=== PATIENT | male | born 1995 | race African-American/Black ===

== ENCOUNTER 2018-12-18 21:51 | Observation (INO) | payer BC, OTHER, SELFPAY ==
[~2018-12-18] VITALS: Ht 175.3 cm; Wt 61.5 kg
[2018-12-18 22:06] LABS: VENOUS BASE EXCESS 2.4 (-2.0-2.0); VENOUS HCO3 25.7 MEQ/L (23.0-27.0); VENOUS O2 SATURATION 75.3 % (60.0-80.0); VENOUS PARTIAL PRESSURE CO2 35.5 mmHg (38.0-50.0); VENOUS PARTIAL PRESSURE O2 38.7 mmHg (30.0-50.0); VENOUS PH 7.477 UNITS (7.330-7.430); VENOUS STANDARD HCO3 26.1 MEQ/L; VENOUS TOTAL CO2 26.8 MEQ/L (24.0-28.0)
[2018-12-18 22:07] LABS: BASO % 0.3 % (0.0-1.0); EOS # 0.1 10^3/uL (0.0-0.50); EOS % 0.6 % (0.0-3.0); HEMATOCRIT 35.9 % (42.0-52.0); HEMOGLOBIN 13.1 g/dl (13.5-17.5); LYMPH # 1.9 10^3/uL (1.5-6.5); LYMPH % 12.6 % (24.0-44.0); MEAN CORPUSCULAR HEMOGLOBIN 30.2 pg (27.0-33.0); MEAN CORPUSCULAR HGB CONC 36.5 g/dl (32.0-36.5); MEAN CORPUSCULAR VOLUME 82.7 fl (80.0-96.0); MONO # 0.8 10^3/uL (0.0-0.8); MONO % 5.3 % (0.0-5.0); NEUTROPHILS # 12.3 10^3/uL (1.8-7.7); NEUTROPHILS % 80.7 % (36.0-66.0); PLATELET COUNT, AUTOMATED 269 10^3/uL (150-450); RED BLOOD COUNT 4.34 10^6/uL (4.30-6.10); WHITE BLOOD COUNT 15.2 10^3/uL (4.0-10.0)
[2018-12-18 22:26] LABS: OSMOLALITY SERUM 292 MOSM/KG (275-295)
--- NOTE | 2018-12-18 22:47 | REPVR ---
EXAM: CT Head Without Contrast EXAM DATE/TIME: 12/18/2018 10:10 PM CLINICAL HISTORY: 23 years old, male; Signs and symptoms; Altered mental status/memory loss TECHNIQUE: Imaging protocol: Axial computed tomography images of the head/brain without contrast. Radiation optimization: All CT scans at this facility use at least one of these dose optimization techniques: automated exposure control; mA and/or kV adjustment per patient size (includes targeted exams where dose is matched to clinical indication); or iterative reconstruction. COMPARISON: No relevant prior studies available. FINDINGS: Brain: Normal. No hemorrhage. No significant white matter disease. No edema. Ventricles: Normal. No ventriculomegaly. Bones/joints: Unremarkable. No acute fracture. Sinuses: Visualized sinuses are unremarkable. No acute sinusitis. Mastoid air cells: Visualized mastoid air cells are unremarkable. No mastoid effusion. Soft tissues: Unremarkable. IMPRESSION: No acute intracranial abnormality. Electronically signed by: Raphael Solorzano On 12/18/2018 22:47:34 PM
[2018-12-18 22:56] LABS: ACETAMINOPHEN LEVEL < 2.0 UG/ML (10.0-30.0); ALBUMIN 4.3 GM/DL (3.2-5.2); ALT/SGPT 16 U/L (12-78); BILIRUBIN,DIRECT 0.2 MG/DL (0.0-0.2); BILIRUBIN,TOTAL 0.8 MG/DL (0.2-1.0); BLOOD UREA NITROGEN 17 MG/DL (7-18); C REACTIVE PROTEIN QUANTITATIV < 0.30 MG/DL (0.00-0.30); CALCIUM LEVEL 8.7 MG/DL (8.5-10.1); CARBON DIOXIDE LEVEL 25 MEQ/L (21-32); CHLORIDE LEVEL 104 MEQ/L (98-107); CPK CREATINE PHOSPHOKINASE 688 U/L (39-308); CREATININE FOR GFR 1.27 MG/DL (0.70-1.30); GLOMERULAR FILTRATION RATE > 60.0 (>60); GLUCOSE, FASTING 95 MG/DL (70-100); MB/CK RELATIVE INDEX 0.29 (< OR =4); POTASSIUM SERUM 3.4 MEQ/L (3.5-5.1); SALICYLATE LEVEL < 1.7 MG/DL (5.0-30.0); SODIUM LEVEL 139 MEQ/L (136-145); TOTAL PROTEIN 7.1 GM/DL (6.4-8.2); TROPONIN I < 0.02 NG/ML (< 0.10)
[2018-12-18] MEDS ORDERED: NS 1,000 ML IV ONE (23:00)
[2018-12-18 23:44] LABS: AMPHETAMINES LEVEL URINE NEGATIVE (NEGATIVE); BARBITURATES URINE NEGATIVE (NEGATIVE); BENZODIAZEPINES URINE NEGATIVE (NEGATIVE); CANNABINOIDS URINE NEGATIVE (NEGATIVE); COCAINE METABOLITE URINE NEGATIVE (NEGATIVE); METHADONE URINE NEGATIVE (NEGATIVE); OPIATES URINE NEGATIVE (NEGATIVE); PHENCYCLIDINE URINE NEGATIVE (NEGATIVE)
[2018-12-19] MEDS ORDERED: KETOROLAC 30 MG/ML VIAL (J1885) IV ONE
[2018-12-19] MEDS ORDERED: ACETAMINOPHEN TAB 650MG DOSE (2X325MG) PO PRN (00:30)
[2018-12-19] MEDS ORDERED: ONDANSETRON 4MG/2ML VIAL (J2405) IV PRN (00:30)
[2018-12-19] MEDS ORDERED: POTASSIUM CHLORIDE 10 MEQ SR TABLET PO ONE (01:00)
--- NOTE | 2018-12-19 02:32 | HPEPDOC ---
General Date of Admission Dec 19, 2018 at 00:16 Chief Complaint The patient is a 23-year-old male admitted with a reason for visit of Episode Of Syncope. History of Present Illness 23-year-old male Yeny [place] [employer] with no significant past medical history was brought to the ER after he had an episode of syncope/unresponsiveness. 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 He notes that his gear was all wet and that he felt nauseous, clammy, and faint. The patient then apparently was pulled from the training exercise and attended to by the medical staff. He was put in a helicopter and taken to [facility]. En route, according to reports the patient was noted to stop breathing and personnel apparently began CPR for about 3 minutes. The patient subsequently woke up and was noted to be nodding appropriately. The patient denies any similar episodes of the same, he denies any family history of sudden , or early onset coronary artery disease. He states that at baseline he is relatively active and is not limited physically at all. He does not recollect all of the aforementioned events clearly. At this time, the patient denies any prodromal symptoms, he also denies any fevers, chills, chest pain, palpitations, abdominal pain, jerking activity of the limbs, urinary/bowel incontinence, or any vomiting/diarrhea. Home Medications No Active Prescriptions or Reported Meds Allergies Coded Allergies: No Known Allergies (Unverified , 12/18/18) Past Medical History Medical History None Social History * Smoker: Denies Alcohol: occationally Drugs: denies Review of Systems Other systems 10 point review of systems negative unless otherwise specified in HPI. Physical Examination General Exam: Positive: Alert, Cooperative, No Acute Distress ENT Exam: Positive: Atraumatic, Mucous membr. moist/pink Neck Exam: Negative: JVD Chest Exam: Positive: Clear to auscultation, Normal air movement Heart Exam: Positive: Rate Normal, Regular Rhythm, Normal S1, Normal S2; Negative: Gallops, Murmurs, Rubs Telemetry: Positive: Sinus Abdomen Exam: Positive: Soft; Negative: Tenderness Extremity Exam: Negative: Tenderness, Swelling Psych Exam: Positive: Oriented x 3 Vital Signs Vital Signs Date Time Temp Pulse Resp B/P (MAP) Pulse Ox O2 Delivery O2 Flow Rate FiO2 12/19/18 02:10 79 17 97 Room Air 12/19/18 00:00 137/67 (90) 12/18/18 22:40 97.4 Laboratory Data Labs 24H Laboratory Tests 2 12/18/18 21:57: Immature Granulocyte % (Auto) 0.5, White Blood Count 15.2H, Red Blood Count 4.34, Hemoglobin 13.1L, Hematocrit 35.9L, Mean Corpuscular Volume 82.7, Mean Corpuscular Hemoglobin 30.2, Mean Corpuscular Hemoglobin Concent 36.5, Red Cell Distribution Width 12.8, Platelet Count 269, Neutrophils (%) (Auto) 80.7H, Lymphocytes (%) (Auto) 12.6L, Monocytes (%) (Auto) 5.3H, Eosinophils (%) (Auto) 0.6, Basophils (%) (Auto) 0.3, Neutrophils # (Auto) 12.3H, Lymphocytes # (Auto) 1.9, Monocytes # (Auto) 0.8, Eosinophils # (Auto) 0.1, Basophils # (Auto) 0.0, Nucleated Red Blood Cells % (auto) 0.0, Blood Gas Bicarbonate Standard 26.1, Venous Blood pH 7.477H, Venous Blood Partial Pressure CO2 35.5L, Venous Blood Partial Pressure O2 38.7, Venous Blood Total Carbon Dioxide 26.8, Venous Blood HCO3 25.7, Venous Blood Oxygen Saturation 75.3, Venous Blood Base Excess 2.4H, Anion Gap 10, Glomerular Filtration Rate > 60.0, Osmolality 292, Lactic Acid Level 2.5*H, Calcium Level 8.7, Aspartate Amino Transf (AST/SGOT) 20, Alanine Aminotransferase (ALT/SGPT) 16, Alkaline Phosphatase 44L, Total Bilirubin 0.8, Direct Bilirubin 0.2, Total Creatine Kinase 688H, Creatine Kinase MB 2.0, Creatine Kinase MB Relative Index 0.29, Troponin I < 0.02, C-Reactive Protein, Quantitative < 0.30, Total Protein 7.1, Albumin 4.3, Albumin/Globulin Ratio 1.54, Thyroid Stimulating Hormone (TSH) 0.990, Salicylates Level < 1.7L, Acetaminophen Level < 2.0L, Ethyl Alcohol Level 12/18/18 22:42: Bedside Glucose (Misc Panel) 97 12/18/18 23:19: Urine Amphetamines Screen NEGATIVE, Urine Benzodiazepines Screen NEGATIVE, Urine Opiates Screen NEGATIVE, Urine Methadone Screen NEGATIVE, Urine Barbiturates Screen NEGATIVE, Urine Phencyclidine Screen NEGATIVE, Urine Cocaine Metabolite Screen NEGATIVE, Urine Cannabinoids Screen NEGATIVE CBC/BMP Laboratory Tests 12/18/18 21:57 Red Blood Count 4.34, Mean Corpuscular Volume 82.7, Mean Corpuscular Hemoglobin 30.2, Mean Corpuscular Hemoglobin Concent 36.5, Red Cell Distribution Width 12.8, Neutrophils (%) (Auto) 80.7 H, Lymphocytes (%) (Auto) 12.6 L, Monocytes (%) (Auto) 5.3 H, Eosinophils (%) (Auto) 0.6, Basophils (%) (Auto) 0.3, Neutrophils # (Auto) 12.3 H, Lymphocytes # (Auto) 1.9, Monocytes # (Auto) 0.8, Eosinophils # (Auto) 0.1, Basophils # (Auto) 0.0 Microbiology Microbiology 12/18/18 Blood Culture, Received Pending Plan / VTE VTE Prophylaxis Ordered?: Yes Plan Plan Syncopal/Unresponsive Episode likely 2/2 Vasovagal Event EKG with no acute ST changes, initial troponin negative--will serially trend No overt murmur appreciated on examination No family history of early onset CAD, or sudden syndrome 2D ECHO ordered We will monitor the patient on telemetry DVT Prophylaxis TAMMI Villasenor MD Dec 19, 2018 02:32
[2018-12-19 02:56] VITALS: BP 135/59
[2018-12-19] MEDS: NS 1,000 ML IV SCH ×2 (04:46→14:15)
[2018-12-19 05:31] LABS: HEMATOCRIT 32.5 % (42.0-52.0); HEMOGLOBIN 11.7 g/dl (13.5-17.5); MEAN CORPUSCULAR HEMOGLOBIN 29.6 pg (27.0-33.0); MEAN CORPUSCULAR VOLUME 82.3 fl (80.0-96.0); PLATELET COUNT, AUTOMATED 241 10^3/uL (150-450); RED BLOOD COUNT 3.95 10^6/uL (4.30-6.10); WHITE BLOOD COUNT 10.9 10^3/uL (4.0-10.0)
[2018-12-19 06:00] VITALS: BP 110/51
[2018-12-19 06:35] LABS: ALBUMIN 3.7 GM/DL (3.2-5.2); ALT/SGPT 14 U/L (12-78); BILIRUBIN,TOTAL 1.3 MG/DL (0.2-1.0); BLOOD UREA NITROGEN 13 MG/DL (7-18); CALCIUM LEVEL 8.2 MG/DL (8.5-10.1); CARBON DIOXIDE LEVEL 26 MEQ/L (21-32); CHLORIDE LEVEL 109 MEQ/L (98-107); CPK CREATINE PHOSPHOKINASE 712 U/L (39-308); CREATININE FOR GFR 0.87 MG/DL (0.70-1.30); GLOMERULAR FILTRATION RATE > 60.0 (>60); GLUCOSE, FASTING 85 MG/DL (70-100); MB/CK RELATIVE INDEX 0.28 (< OR =4); POTASSIUM SERUM 3.7 MEQ/L (3.5-5.1); SODIUM LEVEL 141 MEQ/L (136-145); TOTAL PROTEIN 6.1 GM/DL (6.4-8.2); TROPONIN I < 0.02 NG/ML (< 0.10)
[2018-12-19 07:30] VITALS: BP 116/55
--- NOTE | 2018-12-19 08:02 | REP ---
Portable chest: Single view. History: Altered mental status. Comparison study: No comparison study. Findings: EKG monitoring electrodes are seen. The lungs are well inflated and clear. The pleural angles are sharp. Heart size is normal. There is a granulomatous calcification in the right base. No significant bony abnormality is seen. Pulmonary vasculature is not increased. Impression: No active disease. Electronically Signed by Sudhakar Mendoza MD 12/19/2018 07:55 A
[2018-12-19] MEDS ORDERED: ENOXAPARIN 40 MG/0.4 ML SYRINGE (J1650) SC SCH (09:00)
--- NOTE | 2018-12-19 17:09 | DS.PDOC ---
Discharge Summary General Date of Admission Dec 19, 2018 at 00:16 Date of Discharge 12/19/2018, 4:55 PM Discharge Summary PROCEDURES PERFORMED DURING STAY: Echocardiogram: Pending at time of dictation ADMITTING DIAGNOSES: Syncopal episode likely vasovagal with perhaps some comment of dehydration DISCHARGE DIAGNOSES: Syncopal episode likely vasovagal with some complement of dehydrationpatient will require follow up on results of 2-D echocardiogram, tobacco chewing COMPLICATIONS/CHIEF COMPLAINT: Episode Of Syncope. HISTORY OF PRESENT ILLNESS: The patient is a 21-year-old gentleman who presented from [place] for an episode of syncope/unresponsiveness. 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 He reports he had been drinking enough fluids. He also reports eating lunch. Around evening time, the patient reports he felt a little dizzy/lightheaded. Thereafter, he reports he was drenched in sweat. Reports he felt nauseated. Did not have emesis. The patient was assisted point [facility] point to be brought in for evaluation. En route, the patient apparently had stopped breathing. CPR was initiated with chest compressions as well as rescue breathsappetite patient received 3 rounds of chest compressions and 2 rounds of rescue breaths. Subsequently, the patient regained consciousness. He denied any preceding headache/chest pain/palpitations or shortness of breath. Denies the same at this time as well. He reports having one previous episode in the past when he passed outthis was when he was "sick" and had problems with vomiting. Denies any family history of sudden cardiac or syncope. Initial workup in the ER was unremarkable with EKG that did not show acute ST changes although he does seem to have elevated J-point/early repolarization changes. Troponin was negative. CPK was elevated although patient did receive chest compressions as noted. Chest x-ray and CT scan of the head were unremarkable as well. The patient was admitted to our facility as observation status for further management HOSPITAL COURSE: The patient was admitted to a telemetry monitored unit. Serial troponins remained negative. The patient has been asymptomatic. He was treated with IV fluids. Echocardiogram is going to be performed this evening. Case was discussed with cardiology with Dr. Denny. Patient's clinical presentation sounds suspicious for vasovagal syncope with component of dehydration related to his physical exertion. No additional workup is indicated at this time by cardiology. Following echocardiogram, patient will be discharged home. I have advised him outpatient follow-up with his primary care provider to follow-up on the results of the echocardiogram. Also avoid excess exertion or heavy weight lifting until cleared by his primary care provider pending results of the echocardiogram. The patient otherwise reports that he is asymptomatic today. Denies any dizziness or lightheadedness. No chest pain or shortness of breath. No nausea or vomiting. Denies any abdominal pain. Tolerating oral intake. Patient was counseled regarding quitting tobacco chewing as well as avoiding use of pipe which he reports having used before. DISCHARGE MEDICATIONS: Please see below. ALLERGIES: Please see below. PHYSICAL EXAMINATION ON DISCHARGE: VITAL SIGNS: Please see below. GENERAL: Lying in bed. No distress HEENT: PERRLA NECK: No lymphadenopathy CARDIOVASCULAR EXAMINATION: S1, S2 heard, no murmurs, rubs or gallops RESPIRATORY EXAMINATION: Clear to auscultation with some diminished air entry at lung bases. No overt wheezing ABDOMINAL EXAMINATION: Soft, nontender EXTREMITIES: Bilateral pulses present. No edema SKIN: No rash NEUROLOGICAL EXAMINATION: Cranial nerves II-12 intact. No sensorimotor deficits. [id number]-[id number] test intact. Reflexes 1+ bilaterally symmetrical. PSYCHIATRIC EXAMINATION: Appropriate mood and affect LABORATORY DATA: Please see below. IMAGING: As noted above ACTIVITY: As tolerated. Avoid excess exertion or heavy weight lifting until cleared by primary care provider pending results of echocardiogram DIET: Regular. Drink plenty of fluids. Avoid drinking excess energy drinks. DISCHARGE PLAN: Discharge home today after echocardiogram performed. Patient has been advised to follow-up with primary care provider regarding results of the echocardiogram. DISPOSITION: Home. DISCHARGE CONDITION: Stable. TIME SPENT ON DISCHARGE: 37 minutes. Patient was discharged over 8 hours after initial history and physical exam/evaluation. Vital Signs/I&Os Vital Signs Date Time Temp Pulse Resp B/P (MAP) Pulse Ox O2 Delivery O2 Flow Rate FiO2 12/19/18 14:00 98.0 69 18 99 12/19/18 07:30 116/55 (75) 12/19/18 02:10 Room Air I&O- Last 24 Hours up to 6 AM 12/19/18 06:00 Intake Total 120 ml Output Total 0 ml Balance 120 ml Laboratory Data Labs 24H Laboratory Tests 2 12/18/18 21:57: Immature Granulocyte % (Auto) 0.5, White Blood Count 15.2H, Red Blood Count 4.34, Hemoglobin 13.1L, Hematocrit 35.9L, Mean Corpuscular Volume 82.7, Mean Corpuscular Hemoglobin 30.2, Mean Corpuscular Hemoglobin Concent 36.5, Red Cell Distribution Width 12.8, Platelet Count 269, Neutrophils (%) (Auto) 80.7H, Lymphocytes (%) (Auto) 12.6L, Monocytes (%) (Auto) 5.3H, Eosinophils (%) (Auto) 0.6, Basophils (%) (Auto) 0.3, Neutrophils # (Auto) 12.3H, Lymphocytes # (Auto) 1.9, Monocytes # (Auto) 0.8, Eosinophils # (Auto) 0.1, Basophils # (Auto) 0.0, Nucleated Red Blood Cells % (auto) 0.0, Blood Gas Bicarbonate Standard 26.1, Venous Blood pH 7.477H, Venous Blood Partial Pressure CO2 35.5L, Venous Blood Partial Pressure O2 38.7, Venous Blood Total Carbon Dioxide 26.8, Venous Blood HCO3 25.7, Venous Blood Oxygen Saturation 75.3, Venous Blood Base Excess 2.4H, Anion Gap 10, Glomerular Filtration Rate > 60.0, Osmolality 292, Lactic Acid Level 2.5*H, Calcium Level 8.7, Aspartate Amino Transf (AST/SGOT) 20, Alanine Aminotransferase (ALT/SGPT) 16, Alkaline Phosphatase 44L, Total Bilirubin 0.8, Direct Bilirubin 0.2, Total Creatine Kinase 688H, Creatine Kinase MB 2.0, Creatine Kinase MB Relative Index 0.29, Troponin I < 0.02, C-Reactive Protein, Quantitative < 0.30, Total Protein 7.1, Albumin 4.3, Albumin/Globulin Ratio 1.54, Thyroid Stimulating Hormone (TSH) 0.990, Salicylates Level < 1.7L, Acetaminophen Level < 2.0L, Ethyl Alcohol Level 12/18/18 22:42: Bedside Glucose (Misc Panel) 97 12/18/18 23:19: Urine Amphetamines Screen NEGATIVE, Urine Benzodiazepines Screen NEGATIVE, Urine Opiates Screen NEGATIVE, Urine Methadone Screen NEGATIVE, Urine Barbiturates Screen NEGATIVE, Urine Phencyclidine Screen NEGATIVE, Urine Cocaine Metabolite Screen NEGATIVE, Urine Cannabinoids Screen NEGATIVE 12/19/18 05:21: Nucleated Red Blood Cells % (auto) 0.0, Anion Gap 6L, Glomerular Filtration Rate > 60.0, Lactic Acid Level 0.8, Calcium Level 8.2L, Aspartate Amino Transf (AST/SGOT) 18, Alanine Aminotransferase (ALT/SGPT) 14, Alkaline Phosphatase 41L, Total Bilirubin 1.3#H, Total Creatine Kinase 712H, Creatine Kinase MB 2.0, Creatine Kinase MB Relative Index 0.28, Troponin I < 0.02, Total Protein 6.1L, Albumin 3.7, Albumin/Globulin Ratio 1.54, Blood Urea Nitrogen 13, Creatinine 0.87, Sodium Level 141, Potassium Level 3.7, Chloride Level 109H, Carbon Dioxide Level 26 12/19/18 15:52: Total Creatine Kinase 1190H CBC/BMP Laboratory Tests 12/18/18 21:57 Red Blood Count 4.34, Mean Corpuscular Volume 82.7, Mean Corpuscular Hemoglobin 30.2, Mean Corpuscular Hemoglobin Concent 36.5, Red Cell Distribution Width 12.8, Neutrophils (%) (Auto) 80.7 H, Lymphocytes (%) (Auto) 12.6 L, Monocytes (%) (Auto) 5.3 H, Eosinophils (%) (Auto) 0.6, Basophils (%) (Auto) 0.3, Neutrophils # (Auto) 12.3 H, Lymphocytes # (Auto) 1.9, Monocytes # (Auto) 0.8, Eosinophils # (Auto) 0.1, Basophils # (Auto) 0.0 12/19/18 05:21 Red Blood Count 3.95 L, Mean Corpuscular Volume 82.3, Mean Corpuscular Hemoglobin 29.6, Mean Corpuscular Hemoglobin Concent 36.0, Red Cell Distribution Width 12.9, Calcium Level 8.2 L, Aspartate Amino Transf (AST/SGOT) 18, Alanine Aminotransferase (ALT/SGPT) 14, Total Creatine Kinase 712 H, Alkaline Phosphatase 41 L, Total Bilirubin 1.3 #H, Total Protein 6.1 L, Albumin 3.7 FSBS Laboratory Tests Test 12/18/18 22:42 Range/Units Bedside Glucose (Misc Panel) 97 70-105 MG/DL Microbiology Microbiology 12/18/18 Blood Culture, Received Pending Discharge Medications No Active Prescriptions or Reported Meds Allergies Coded Allergies: No Known Allergies (Unverified , 12/18/18) CORTEZ DOAN MD Dec 19, 2018 17:09
--- NOTE | 2018-12-20 00:36 | ECGEPIP ---
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
--- NOTE | 2018-12-20 01:07 | ECGEPIP ---
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
--- NOTE | 2018-12-20 07:18 | ECHO ---
DATE OF PROCEDURE: 12/19/2018 REFERRING PHYSICIAN: Dr. Bermudez INDICATION: Syncope. HEIGHT: 175 cm WEIGHT: 60 kg DIMENSIONS: IVS: 0.9 LV: 4.0 LVPW: 0.9 LA: 3.2 Aorta: 2.7 IVC: 2.7 Mitral E wave velocity: 83 A wave: 48 E prime septal: 10.7 E prime lateral: 15.6 Left atrial volume index: 19 FINDINGS: The study is of good technical quality. Left ventricle is of normal size and systolic function with estimated left ventricular ejection fraction (LVEF) 60-65%. No segmental wall motion abnormalities are appreciated. Right ventricle is also normal size and systolic function. Both atria appear normal. All four cardiac valves were reasonably well seen and appear normal. No pericardial effusion is noted. Inferior vena cava is dilated and does not have any appreciable collapse with respiration indicative of likely very high central venous pressure. Aortic root is normal. Aortic arch and abdominal aorta also appear normal. Doppler interrogation reveals no aortic stenosis or insufficiency. There is trace mitral insufficiency and trace tricuspid insufficiency. Calculated pulmonary artery pressure is going to be in the low 30s, corresponding to mild pulmonary hypertension. Mitral inflow pattern and tissue Doppler imaging of mitral annulus reveal normal diastolic functional left ventricle. CONCLUSIONS: 1. Study is of good technical quality. 2. Normal LV size with normal LV systolic function and normal diastolic function. 3. No significant valvular disease. 4. Suggestive of elevated central venous pressure and at least mild pulmonary hypertension. COMMENT: Subacute bacterial endocarditis (SBE) prophylaxis is not recommended. Even though there is no obvious RV dysfunction, I would consider pulmonary embolism in differential diagnosis if its possibility fits clinical presentation.
== END 2018-12-19 19:55 | disposition home or self-care (01) ==
LOC: EDBD 21:51 → M ED 21:51 → M ED INP 21:52 → UNDOADMOB 12-19 00:16 → M ED INP 12-19 00:16 → M MSPAV 12-19 02:55 → UNDODISOB 12-19 19:55
PROVIDERS: ADMIT Internal Medicine; ATTEND Internal Medicine
DX: R55 Syncope and collapse (principal); E86.0 Dehydration; F17.220 Nicotine dependence, chewing tobacco, uncomplicated; R41.82 Altered mental status, unspecified; I27.20 Pulmonary hypertension, unspecified
CPT/HCPCS: 36415; 70450; 71045; 80048; 80053; 80076; 80307; 82550; 82553; 82803; 83605; 83930; 84443; 84484; 85025; 85027; 86140; 87040; 93005; 93041; 93306; 96372; 96374; 99285; G0378; G0480; J1650; J1885